=== PATIENT | female | born 1955 | race Caucasian/White ===

== ENCOUNTER → 2020-05-09 | Outpatient (CLI) | payer OTHER | LOC: LAB 11:02 | PROVIDERS: ATTEND Radiology Diagnostic Radiology | DX: Z01.812 Encounter for preprocedural laboratory examination (principal); Z20.828 Contact with and (suspected) exposure to other viral communicable diseases ==

== ENCOUNTER → 2020-05-14 | Outpatient (CLI) | payer OTHER ==
[~2020-05-14] VITALS: Ht 167.6 cm; Wt 68.0 kg
[~2020-05-14] MED LIST: FLEXERIL PO; IBUPROFEN 200200 M1 PO; LINZESS290 MCG PO; PROTONIX40 M2 PO; XYZAL5 MG PO
[2020-05-14 10:27] VITALS: BP 150/80
[2020-05-14 10:34] LABS: HEMATOCRIT 41.3 % (37.0-47.0); HEMOGLOBIN 13.8 gm/dL (12.0-15.0); MCH 32.5 pg (26.0-34.0); MCHC 33.5 g/dL (28.0-37.0); MCV 97.1 fL (80.0-100.0); RBC 4.25 mil/uL (4.20-5.00); RDW 14.7 % (10.5-14.5)
[2020-05-14 10:57] LABS: APTT 24.5 Seconds (24.5-32.8); PROTIME 9.7 Seconds (9.3-11.4)
[2020-05-14 12:18] VITALS: BP 140/71
[2020-05-14 12:20] VITALS: BP 141/65
== END | disposition home or self-care (01) ==
LOC: CAT 09:48
PROVIDERS: ATTEND Radiology Diagnostic Radiology
DX: M71.30 Other bursal cyst, unspecified site (principal); M54.16 Radiculopathy, lumbar region; M79.7 Fibromyalgia; Z98.890 Other specified postprocedural states; Z79.899 Other long term (current) drug therapy